=== PATIENT | male | born 1940 | race Caucasian/White ===

== ENCOUNTER → 2016-12-03 | Outpatient (CLI) | payer OTHER, BC ==
[~2016-12-03] MED LIST: CLS1 PO; CMD/25 PO; CMD5 PO; FENO160T PO; LVNIS100 SQ; MCRK/10 PO; MGNO400 PO; TNR50 PO; TRIA0.1O12 TOP; TRIA37.5 PO
--- NOTE | 2016-12-03 09:30 | DIAGNOSTIC IMAGING REPORT ---
ULTRASOUND RIGHT UPPER QUADRANT ABDOMEN CLINICAL HISTORY: Right upper quadrant abdominal pain. COMPARISON STUDY: No priors. TECHNIQUE: Real-time, grayscale, and color flow sonography of the right upper quadrant of the abdomen was performed. Images are reviewed in the transverse and longitudinal planes. FINDINGS: Liver: The liver is normal in size and echotexture. There is no intrahepatic biliary ductal dilatation. The main portal vein is patent. Gallbladder: The gallbladder is filled with shadowing calculi. There is no gallbladder wall thickening or pericholecystic fluid. A sonographic Branch's sign is reportedly absent. The common bile duct measures up to 0.5 cm in diameter. Pancreas: Visualized portions of the pancreatic head and body are normal in appearance. Right kidney: Survey images of the right kidney demonstrate normal size and echotexture. There is no hydronephrosis. A 2.2 cm exophytic cyst is incidentally noted. Ascites: None. IMPRESSION: 1. The gallbladder is filled with shadowing calculi. There is no sonographic evidence of acute cholecystitis. 2. There is no intra or extrahepatic biliary ductal dilatation. Electronically signed by: Eddie Laguerre M.D. 12/03/2016 9:29 AM Dictated Date/Time: 12/03/2016 9:27 AM
--- NOTE | 2016-12-03 10:34 | DIAGNOSTIC IMAGING REPORT ---
GI SERIES W/AIR ROUTINE CLINICAL HISTORY: R10.9 [phone] E X0D E COMPARISON STUDY: None FLUOROSCOPY TIME: 1.5 minutes. FINDINGS: Patient initiates swallowing function well. Esophagus normal in course and caliber. Gastroesophageal junction is normal. Size and configuration stomach are normal. Duodenal sweep is unremarkable. IMPRESSION: Normal study Electronically signed by: Denis Dillard M.D. 12/03/2016 10:32 AM Dictated Date/Time: 12/03/2016 10:23 AM
== END | disposition home or self-care (01) ==
LOC: C.ULTR 08:59
PROVIDERS: ATTEND Family Medicine
DX: R10.9 Unspecified abdominal pain (principal)

== ENCOUNTER → 2017-02-18 | Outpatient (CLI) | payer OTHER, BC ==
[~2017-02-18] MED LIST changes: +ACET-1311 PO; +AMLO-110 PO; +COLE1TAB PO; +ENOX100I SQ; +FLM4 PO; +MELO7.5T5 PO; +RXC5 PO; +TRMCR515 TOP; +WARF5TAB90 PO
[2017-02-18 14:53] LABS: ALT/SGPT 20 U/L (12-78); AST/SGOT 13 U/L (15-37); BLOOD UREA NITROGEN 24 mg/dl (7-18); CALCIUM 9.3 mg/dl (8.5-10.1); CARBON DIOXIDE 27 mmol/L (21-32); CHLORIDE 105 mmol/L (98-107); GLUCOSE 89 mg/dl (70-99); MAGNESIUM 2.4 mg/dl (1.8-2.4); POTASSIUM 3.9 mmol/L (3.5-5.1); SODIUM 140 mmol/L (136-145)
[2017-02-18 14:57] LABS: CHOLESTEROL 205 mg/dl (0-200); CHOLESTEROL/HDL RATIO 4.4; HDL CHOLESTEROL 47 mg/dl; LDL CHOLESTEROL CALCULATED 140 mg/dl; TRIGLYCERIDES 91 mg/dl (0-150); VERY LOW DENSITY LIPOPROT CALC 18 mg/dl
== END ==
LOC: C.LABMFLN 09:44
PROVIDERS: ATTEND Family Medicine
DX: I10 Essential (primary) hypertension (principal); E78.01 Familial hypercholesterolemia; E83.42 Hypomagnesemia

== ENCOUNTER → 2017-03-18 | Outpatient (CLI) | payer OTHER, BC ==
[2017-03-18 18:43] LABS: BLOOD UREA NITROGEN 17 mg/dl (7-18); BUN/CREATININE RATIO 17.4 (10-20); CALCIUM 8.9 mg/dl (8.5-10.1); CARBON DIOXIDE 22 mmol/L (21-32); CHLORIDE 106 mmol/L (98-107); GLUCOSE 74 mg/dl (70-99); POTASSIUM 3.7 mmol/L (3.5-5.1); SODIUM 139 mmol/L (136-145)
== END | disposition home or self-care (01) ==
LOC: C.LABMFLN 13:56
PROVIDERS: ATTEND Family Medicine
DX: I10 Essential (primary) hypertension (principal)

== ENCOUNTER → 2017-06-04 | Outpatient (CLI) | payer OTHER, BC ==
[~2017-06-04] MED LIST changes: -ENOX100I SQ; -FLM4 PO; -RXC5 PO; -WARF5TAB90 PO
--- NOTE | 2017-06-04 12:28 | DIAGNOSTIC IMAGING REPORT ---
LUMBAR SPINE MRI HISTORY: M48.06 Lumbar spinal [id number] TECHNIQUE: Multiplanar multisequence MRI of the lumbar spine was performed without the use of contrast. COMPARISON: None. FINDINGS: For the purpose of the report the L5-S1 disc space will be located on axial image 34 of 36. Alignment is intact. No fractures within the lumbar spine. There are multiple scattered T1 and T2 hyperintense lesions within the lumbar spine. These are consistent with hemangiomas. The largest at the L2 level measures 2.8 cm. The conus terminates at the L1-L2 disc space level. There are few subcentimeter T2 hyperintense lesions within the kidneys. These likely represent cysts. Paraspinal soft tissues are unremarkable. The L5-S1 disc space appears fused. Mild disc space narrowing at L2-L3 and moderate disc space narrowing at L3-4 L5 with endplate osteophytes. Moderate to severe facet osteoarthritis throughout the lumbar spine. Increased T2 signal within the L4-L5 disc space is likely due to the long-standing degenerative change. There are no endplate erosions identified. L1-L2: Tiny broad-based posterior disc bulge with bilateral facet hypertrophy resulting in minimal central canal and moderate left neural foraminal narrowing. L2-L3: Broad-based posterior disc bulge with ligamentum and facet hypertrophy resulting in mild to moderate central canal and mild bilateral neural foraminal narrowing. L3-L4: Small broad-based posterior disc bulge with bilateral severe facet hypertrophy and ligamentum hypertrophy. This results in severe central canal narrowing. There is mild bilateral neural foraminal narrowing. L4-L5: Small broad-based posterior disc bulge with a focal central annular tear. There are severe bilateral facet hypertrophy resulting in severe central canal narrowing. The central canal measures 6 mm in AP diameter. There is also moderate right and severe left neural foraminal narrowing. L5-S1: No significant central canal or neural foraminal narrowing. IMPRESSION: 1. Multilevel lumbar spondylosis as described above most pronounced at the L3-L4 and L4-5 levels where there is severe central canal narrowing. This is primarily due to the severe facet hypertrophy. 2. No fracture or subluxation. 3. The L5-S1 disc space appears fused. 4. Moderate to severe facet osteoarthritis throughout the lumbar spine. Electronically signed by: Garth Garsia M.D. 06/04/2017 12:27 PM Dictated Date/Time: 06/04/2017 12:16 PM
== END | disposition home or self-care (01) ==
LOC: C.MRI 10:56
PROVIDERS: ATTEND Family Medicine
DX: M48.06 Spinal stenosis, lumbar region (principal); M47.816 Spondylosis without myelopathy or radiculopathy, lumbar region

== ENCOUNTER → 2017-08-19 | Outpatient (CLI) | payer OTHER, BC ==
[~2017-08-19] MED LIST changes: -CLS1 PO; -CMD/25 PO; -CMD5 PO; +ENOX100I SQ; +FLM4 PO; -LVNIS100 SQ; -MCRK/10 PO; -MELO7.5T5 PO; -MGNO400 PO; +RXC5 PO; -TRIA0.1O12 TOP; -TRIA37.5 PO; +WARF5TAB90 PO
[2017-08-19 12:53] LABS: INR 1.3 (0.9-1.1); PROTHROMBIN TIME (PATIENT) 13.5 SECONDS (9.0-12.0)
[2017-08-19 13:25] LABS: BASO % 0.6 %; BASO ABS # 0.04 K/uL (0-0.2); COMPLETE YES; EOS % 3.1 %; HEMATOCRIT 29.6 % (42-52); IG% 1.4 %; LYMPH % 8.7 %; LYMPH ABS # 0.56 K/uL (1.2-3.4); MEAN CELL VOLUME 91.9 fL (80-100); MEAN CORPUSCULAR HEMOGLOBIN 31.1 pg (25-34); MEAN CORPUSCULAR HGB CONC 33.8 g/dl (32-36); MONO % 8.7 %; NEUT % 77.5 %; PLATELET COUNT 404 K/uL (130-400); RED BLOOD COUNT 3.22 M/uL (4.7-6.1); WHITE BLOOD COUNT 6.46 K/uL (4.8-10.8)
[2017-08-19 13:56] LABS: BLOOD UREA NITROGEN 10 mg/dl (7-18); BUN/CREATININE RATIO 11.1 (10-20); CALCIUM 9.4 mg/dl (8.5-10.1); CARBON DIOXIDE 24 mmol/L (21-32); CHLORIDE 104 mmol/L (98-107); CREATININE 0.93 mg/dl (0.60-1.40); GLUCOSE 94 mg/dl (70-99); POTASSIUM 3.9 mmol/L (3.5-5.1); SODIUM 138 mmol/L (136-145)
== END | disposition home or self-care (01) ==
LOC: C.LABMFLN 09:03
PROVIDERS: ATTEND Family Medicine
DX: Z00.00 Encounter for general adult medical examination without abnormal findings (principal); I10 Essential (primary) hypertension; D64.9 Anemia, unspecified; K62.5 Hemorrhage of anus and rectum; I82.409 Acute embolism and thrombosis of unspecified deep veins of unspecified lower extremity; M54.9 Dorsalgia, unspecified

== ENCOUNTER → 2017-09-23 | Outpatient (CLI) | payer OTHER, BC ==
[2017-09-23 18:25] LABS: HEMATOCRIT 40.3 % (42-52)
== END | disposition home or self-care (01) ==
LOC: C.LABMFLN 11:28
PROVIDERS: ATTEND Family Medicine
DX: D64.9 Anemia, unspecified (principal)

== ENCOUNTER → 2017-12-25 | Outpatient (CLI) | payer OTHER, BC | END | disposition home or self-care (01) | LOC: C.PATHSPEC 13:21 | PROVIDERS: ATTEND Family Medicine | DX: L57.0 Actinic keratosis (principal) ==

== ENCOUNTER → 2018-05-05 | Day surgery (SDC) | payer OTHER, BC ==
[2018-05-01 08:10] VITALS: Ht 185.4 cm; Wt 93.2 kg
[~2018-05-05] VITALS: Ht 185.4 cm; Wt 93.2 kg
[~2018-05-05] MED LIST changes: +500ML BSS 0.3ML EPI 1:1000PF IRRIG ONE; +ACETAMINOPHEN 325 MG TAB PO PRN; -AMLO-110 PO; +AMLO5TAB3 PO; +AMVISC PLUS 0.8ML SYRINGE INT OCU ONE; +ATROPINE SULFATE 0.1 MG/ML 5ML SYR IV PRN; +BRIMONIDINE TART 0.2% OP SOLN PER DROP CHARGE ONE; +BSS FLUSH ONE; +ENDOCOAT 0.85ML SYRINGE INT OCU ONE; -ENOX100I SQ; +EpHEDrine SULFATE INJ 50 MG/ML AMP IV PRN; +EpINEphrine INJ 1MG/ML AMP 1 MG/ML AMP ONE; -FLM4 PO; +LACTATED RINGER'S 1000ML 500 ML IV SCH; +LIDOCAINE 4% OP SOLN DROP CHARGE ONE; +LIDOCAINE 4% OP SOLN DROP CHARGE OPR SCH; +LIDOCAINE HCL 1% MPF 2 ML VIAL ONE; +MIDAZOLAM HCL 1 MG/ML 2ML VIAL ONE; +MOXIFLOXACIN OPH SOLN PER DROP CHARGE ONE; +POVIDONE-IODINE OP SOLN 30 ML BTL ONE; +PROPARACAINE 0.5% OP SOLN PER DROP CHARGE OPR SCH; -RXC5 PO; +TOBRAMYCIN/DEXAMETHASONE OPH OINT PER APPLN CHARGE ONE; -TRMCR515 TOP; +WARF-246 PO; -WARF5TAB90 PO; +WARF7.5T4 PO
--- NOTE | 2018-05-05 08:42 | History & Physical Bridge - SC ---
H&P Re-Evaluation Bridge Note: I have examined the patient, reviewed the History & Physical and in the interval since the performance of the History & Physical I have noted the following changes of clinical significance: No changes noted
[2018-05-05] MEDS: PHENYLEPHRINE HCL 2.5% OP SOLN PER DROP CHARGE OPR SCH ×2 (08:49→08:54)
[2018-05-05] MEDS: TROPICAMIDE 1% OP SOLN PER DROP CHARGE OPR SCH ×2 (08:50→08:55)
[2018-05-05] MEDS: CYCLOPENTOLATE HCL 1% OP SOLN PER DROP CHARGE OPR SCH ×2 (08:51→08:56)
[2018-05-05] MEDS: KETOROLAC 0.5% OP SOLN PER DROP CHARGE OPR SCH ×2 (08:52→08:57)
[2018-05-05] MEDS: MOXIFLOXACIN OPH SOLN PER DROP CHARGE OPR SCH ×2 (08:53→08:58)
--- NOTE | 2018-05-05 09:37 | [facility] Operative Report ---
Operative Report Operative Date May 05, 2018. Pre-Operative Diagnosis Right Eye Cataract Post-Operative Diagnosis same Procedure(s) Performed Right Cataract Phacoemulsification With Intraocular Lens Implant Surgeon Dr. Eladio Mosley Supervisor Mails Surgeon(s) 0 Estimated Blood Loss 0 Findings cataract right eye Specimens none Drains None Anesthesia Type MAC Complication(s) none Disposition no Recovery Room / PACU Indications decreased vision right eye Description of Procedure After informed consent was obtained in the holding area the patient was wheeled back to the operating room where cardiac monitoring leads and oxygen by nasal cannula was administered by Anesthesia. Gentle IV sedation was given, and the patient's right eye was prepped and draped in usual sterile fashion. A wire lid speculum was placed into the right eye and the operating microscope was swung into position. Using 0.12 forceps and a Supersharp blade a paracentesis port was made 2 o'clock hours away from the 3 o'clock position of the patient's right eye. 1% non-preserved Lidocaine was then injected into the anterior chamber for anesthesia. A 2.0 mm keratotome blade was then used to make a shelved clear corneal incision at the 3 o'clock position of the right eye. Amvisc was injected into the anterior chamber and a cystotome and Utrata forceps were used to perform a curvilinear capsulorrhexis. BSS on a hydrodissection cannula was used to hydrodissect the lens nucleus away from the capsular bag. The phacoemulsification handpiece was then used in a stop and chop fashion to remove the lens nucleus. The irrigation and aspiration handpiece was then used to remove the residual cortical material. Amvisc was injected into the capsular bag and anterior chamber and a Bausch [employer] Lomb MX60E 22.5 Diopter intraocular lens was injected into the capsular bag. Irrigation and aspiration handpiece was used to remove the residual viscoelastic material. The wounds were hydrated and noted to be watertight. The wire lid speculum was removed from the eye. Vigamox, Brimonidine, and TobraDex ointment were placed on the eye and it was shielded. It should be noted that EndoCoat was used extensively during the case to protect the cornea endothelium. DISPOSITION: The patient tolerated the procedure well and was wheeled to the post anesthesia care unit in stable condition. I attest to the content of the Intraoperative Record and any orders documented therein. Any exceptions are noted below. I attest to the content of the Intraoperative Record and any orders documented therein. Any exceptions are noted below.
--- NOTE | 2018-05-05 09:39 | Discharge Instructions-SurgCtr ---
Discharge Instructions Date of Service May 05, 2018. Visit Reason for Visit: Cataract Right Eye Discharge Discharge Diagnosis / Problem: cataract right eye Discharge Goals Goal(s): Improve function Activity Recommendations Activity Limitations: per Instructions/Follow-up section Lifting Limitations: no more than 5 pounds Anesthesia . Post Anesthesia Instructions: If you have had General Anesthesia or IV Sedation: * Do not drive today. * Resume driving when surgeon permits. * Do not make important decisions or sign legal documents today. * Call surgeon for: 1. Temperature elevations greater than 101 degrees F. 2. Uncontrollable pain. 3. Excessive bleeding. 4. Persistent nausea and vomiting. 5. Medication intolerance (nausea, vomiting or rash). * For nausea and vomiting use only clear liquids such as: tea, soda, bouillon until nausea subsides, then gradually increase diet as tolerated. * If you have any concerns or questions, call your surgeon's office. If physician is unavailable and it is an emergency, call 911 or go to the nearest emergency room. . Instructions / Follow-Up Instructions / Follow-Up ACTIVITY RECOMMENDATIONS: * Light activities * You may walk outside, read, watch television. * Mild irritation and blurred vision are common for the first few days, redness around the white part of the eye is common. MEDICATIONS: Resume previous medications unless instructed otherwise by your surgeon. Eye drops (today and tomorrow): Polytrim - one drop in operative eye every 2 hours while awake Prednisolone 1% - one drop in operative eye every 2 hours while awake Prolensa - one drop operative eye 1 times daily SPECIAL CARE INSTRUCTIONS: * If any problems or concerns, please call Dr. Mosley's office at . * Keep plastic shield taped over eye to sleep at night. * Keep plastic shield taped over eye except to administer eye drops. * Keep plastic shield on until office visit the following day. FOLLOW UP VISIT: Follow-up with Dr. Mosley in the [place] office as scheduled. If not already scheduled, please call the office at . Diet Recommendations Home Diet: resume previous diet Procedures Procedures Performed: Right Cataract Phacoemulsification With Intraocular Lens Implant Pending Studies Studies pending at discharge: no Medical Emergencies . Who to Call and When: Medical Emergencies: If at any time you feel your situation is an emergency, please call 911 immediately. . Non-Emergent Contact Non-Emergency issues call your: Soap Worker . . "Provider Documentation" section prepared by Wilton Mosley. .
[2018-05-05 09:40] VITALS: TEMP 36.3
--- NOTE | 2018-05-05 09:58 | Anesthesia Progress Nt - [facility] ---
Anesthesia Post Op Note Date & Time May 05, 2018 at 09:57 Vital Signs Pain Intensity: 0 Vital Signs Past 12 Hours Date Time Temp Pulse Resp B/P (MAP) Pulse Ox O2 Delivery O2 Flow Rate FiO2 05/05/18 09:40 36.3 62 16 157/90 (112) 94 Room Air 05/05/18 08:40 36.6 65 22 161/100 (120) 93 Room Air Notes Mental Status: alert / awake / arousable, participated in evaluation Pt Amnestic to Procedure: Yes Nausea / Vomiting: adequately controlled Pain: adequately controlled Airway Patency, RR, SpO2: stable & adequate BP & HR: stable & adequate Hydration State: stable & adequate Anesthetic Complications: no major complications apparent
[2018-05-05 10:05] VITALS: BP 163/84; PULSE 70; O2SAT 95
== END | disposition home or self-care (01) ==
LOC: X.SURG 07:54
PROVIDERS: ATTEND Ophthalmology
DX: H25.11 Age-related nuclear cataract, right eye (principal); I10 Essential (primary) hypertension; E78.00 Pure hypercholesterolemia, unspecified; M06.9 Rheumatoid arthritis, unspecified; Z79.01 Long term (current) use of anticoagulants

== ENCOUNTER 2019-10-14 04:56 | Inpatient (IN) ==
--- NOTE | 2019-09-16 11:48 | PAT Medication Instructions ---
Medication Instructions Date of Service September 16, 2019 Home Medications Medication Instructions Recorded atenolol 50 mg tablet 50 mg PO QAM #30 tab 04/24/19 fenofibrate 160 mg tablet 160 mg PO QAM #30 tab 04/24/19 amlodipine 5 mg tablet 5 mg PO QAM #90 tab 08/20/19 atenolol 50 mg tablet 50 mg PO QAM fenofibrate 160 mg tablet 160 mg PO QAM amlodipine 5 mg tablet 5 mg PO QAM colestipol 2 g PO QDD rivaroxaban [Xarelto] 20 mg PO QDL tamsulosin 0.4 mg PO QPM ASK your prescriber and surgeon rivaroxaban [Xarelto] 20 mg PO QDL (in order for spinal anesthesia, rivaroxaban/Xarelto needs to be stopped 3 days/72 hours before surgery. Please check if okay with doctor that prescribes this to you) STOP taking 48 hours before surgery fenofibrate 160 mg tablet 160 mg PO QAM colestipol 2 g PO QDD Take morning of surgery With a small sip of water, OTHERWISE NOTHING TO EAT OR DRINK AFTER MIDNIGHT: atenolol 50 mg tablet 50 mg PO QAM amlodipine 5 mg tablet 5 mg PO QAM Take evening before surgery tamsulosin 0.4 mg PO QPM Other Notes If you have any questions please call us at [phone] or [phone] or [phone] or [phone]
--- NOTE | 2019-09-17 15:17 | Anesthesiology Consultation ---
Date of Service September 17, 2019 Assessment & Plan (1) Encounter for pre-operative examination: - Awaiting review preop testing (coags, T&S). - Awaiting PCP preop clearance scheduled 09/28 ([facility]INCESS/Dr. Womack) - Recent new onset a. fib (rate controlled): PCP ordered 24 hour holter (09/09/19: dominant rhythm throughout a. fib) and ECHO (done 09/09/19). Started on Xarelto (patient was previously on coumadin for hx of DVTs which was discontinued when Xarelto was initiated recently). Continued on beta veronika. Patient scheduled for PCP preop clearance appointment 09/28/19 ([facility]/Dr. Womack). Case reviewed with Dr. Bermudez: he feels we do not need further cardiology evaluation or testing prior to surgery from his perspective pending final clearance from PCP. - Xarelto instructions: patient made aware that in order for spinal anesthesia, Xarelto needs to be held 3 days/72 hours prior to surgery. Patient voiced understanding/will check if okay with prescriber. Chart Review Chart Review: Patient seen in Pre Admission Testing Teaching & Discussion Pre-Anesthesia Teaching/Discussion Notes: Instructed NPO after midnight before surgery,except medications with 15 cc of water. Medication instructions provided according to the PAT guidelines. History Surgery Operation Date: 10/14/19 07:00 Proposed Procedures p Right Total Hip Arthroplasty - [place] Heredia MD Height/Weight Height: 6 ft 1 in Weight: 93.4 kg Allergies Allergy/AdvReac Type Severity Reaction Status Date / Time peanut Allergy Intermediate THROAT Verified 09/17/19 14:42 IRRIATATION (SEE COMMENTS) pollen extracts Allergy Mild HAY FEVER Verified 09/09/19 10:32 Zptfijr-Jcp-Cgy Reductase AdvReac Mild MUSCLE Verified 09/17/19 14:42 Inhibitor SORENESS, WEAKNESS Dust Allergy Mild HAY FEVER Uncoded 09/09/19 10:32 Medications Home Medications Medication Instructions Recorded Confirmed Last Taken atenolol 50 mg tablet 50 mg PO QAM #30 tab 04/24/19 09/09/19 Unknown fenofibrate 160 mg tablet 160 mg PO QAM #30 tab 04/24/19 09/09/19 Unknown amlodipine 5 mg tablet 5 mg PO QAM #90 tab 08/20/19 09/09/19 Unknown colestipol 2 g PO QDD 09/09/19 09/09/19 Unknown rivaroxaban [Xarelto] 20 mg PO QDL 09/09/19 09/09/19 Unknown tamsulosin 0.4 mg PO QPM 09/09/19 09/09/19 Unknown Past Medical History Medical History Atrial fibrillation, persistent recent diagnosis/started on Xarelto/scheduled for ECHO 09/09/19 [place] BPH (benign prostatic hyperplasia) Chronic back pain Degenerative disc disease Hearing deficit History of blood transfusion post-op Hx of deep venous thrombosis 2015, 2017 Hyperlipidemia Hypertension Osteoarthritis Renal insufficiency per records Spinal stenosis Exercise / Class Metabolic Activity II 4-5 Yardwork/Stairs/Walk up hill (one flight of stairs (no chest pain/no sob)) Past Family History Family History Other No pertinent family history Past Surgical History Surgical History History of anesthesia reaction UNABLE TO VOID AFTER BACK SURGERY 2017 - D/C TO HOME W/ CATHETER (RESOLVED) History of arthroscopic knee surgery RT X 2 History of back surgery X 2 1990S History of carpal tunnel release of both wrists History of cataract surgery History of colonoscopy History of inguinal hernia repair, bilateral WITH MESH History of knee replacement RT History of lumbar spinal fusion HARDWARE PRESENT (2017) History of tonsillectomy and adenoidectomy History of umbilical hernia repair Hx of decompression of ulnar nerve B/L Past Anesthesia History No Family Hx of Anesthesia Complications and Other History of anesthesia reaction UNABLE TO VOID AFTER BACK SURGERY 2017 - D/C TO HOME W/ CATHETER (RESOLVED) History of PONV No Hx of PONV and No Hx of Motion Sickness Social History Smoking Status: Never smoker Do You Dip or Chew Tobacco: No Hx Alcohol Use: Yes Alcohol type: beer alcohol intake frequency: holidays/special occasions only Hx Substance Use: No substance use type: does not use Review of Systems Patient denies chest pain, shortness of breath, dyspnea on exertion, cough, wheezing, palpitations. Physical Exam Vital Signs VITALS BP 156/90 P 79 TEMP 98.7 SP02 97%RA RESP 18 PHYSICAL mildly decreased cervical extension (chronic per patient 2/2 calcium deposits) Full TMJ range of motion. TMD 2.5 finger breaths Mallampati Score 3 Dentition: upper partial Lungs: clear throughout to auscultation Cardiac: regular rate, irregularly irregular rhythm, no murmurs noted Spine: normal Carotid arteries: negative bruit Extremities: no edema Testing Laboratory Results 09/08/19 WBC 5.64 H/H 16.8/48.5 PLATELETS 234 SODIUM 138 POTASSIUM 3.8 CHLORIDE 105 CO2 27 BUN 22 CREATININE 1.34 GLUCOSE 96 UA negative bacteria (no growth on urine culture) Electrocardiogram Date: 09/08/19 A. fib at 72bpm. iRBBB. LAFB. NS TWA. *Patient had subsequent ECHO done 09/09/19* Chest X-Ray Date: 04/08/19 No acute process within the chest. Mild cardiomegaly. Subtle interstitial thickening at the lung bases. This is likely chronic. Echocardiogram Date: 09/09/19 LVEF 53%. No RWMA. Moderate LAE. Mild DEAN. Mild AR/MR/TR. Underlying rhythm is a. fib. Other Testing 24 Hour Holter: 09/09/19: dominant rhythm a. fib throughout with an average ventricular response rate of 71bpm. Slowest response rate 44bpm. Fastest heart rate 109bpm. Occasional PVC's. No symptoms reported.
[2019-09-17 16:41] LABS: INR 1.4 (0.9-1.1); Partial Thromboplastin Ratio 1.4; Partial Thromboplastin Time 37.6 Seconds (21.0-31.0); Prothrombin Time 13.6 Seconds (9.0-12.0)
--- NOTE | 2019-09-25 17:48 | History and Physical Report ---
DATE OF ADMISSION: 10/14/2019 CHIEF COMPLAINT: Right hip pain. HISTORY OF PRESENT ILLNESS: This 79-year-old white male presents to the office with complaints of right hip pain that has been longstanding. He initially thought it was coming from his knee. It has been present for over a year. He had evaluation for his lumbar spine as well as corticosteroid injection in his hip without significant improvement. He has also had activity modification as well as oral pain medication without improvement. He notes some thigh atrophy that has been present for over a year. Pain is worse with weightbearing. It is affecting his ADLs. He notes some loss of motion. He elects to proceed with total hip arthroplasty in hopes of alleviating his discomfort. Preoperative imaging has been obtained. His accompanies him today. No numbness or tingling in his thigh. He is on chronic anticoagulation with Xarelto due to history of persistent atrial fibrillation and previous DVTs. He was recently diagnosed with recurrent onset of atrial fibrillation and is having further workup with his PCP. PAST MEDICAL HISTORY: Recurrent atrial fibrillation, hypertension, elevated cholesterol, sleep apnea, history of anemia, history of DVTs, rheumatoid arthritis, osteoarthritis, chronic low back pain, and BPH. PREVIOUS SURGERIES: Knee arthroscopy, back surgery, carpal tunnel release bilateral wrists, cataract surgery, colonoscopy, inguinal hernia repair bilaterally, right knee replacement, lumbar spinal fusion, tonsillectomy with adenoidectomy, umbilical hernia repair, and ulnar nerve decompression. ALLERGIES: KNOWN ALLERGY TO STATIN DRUGS INCLUDING ZOCOR, PRAVACHOL, AND LIPITOR. CURRENT MEDICATIONS: Amlodipine 5 mg p.o. daily, atenolol 50 mg p.o. daily, Colestid 1 gram orally daily, fenofibrate 160 mg p.o. daily, tamsulosin 0.4 mg p.o. at bedtime, Tylenol 1000 mg p.o. b.i.d., Xarelto 20 mg p.o. daily. FAMILY HISTORY: Noncontributory. SOCIAL HISTORY: The patient is retired. . No tobacco use, occasional ETOH use. REVIEW OF SYSTEMS: A total of 10 systems are reviewed and are significant only for above stated conditions. PHYSICAL EXAMINATION: GENERAL: Well-developed, well-nourished elderly white male in no acute distress. Sitting in a chair. Alert and oriented. SKIN: Warm and dry with good turgor. No rashes or lesions. No ecchymosis or erythema. HEENT: Normocephalic, atraumatic. Eyes PERRLA, EOMI. Nares patent bilaterally without turbinate enlargement. Oropharynx without erythema or exudate. No lesions noted. Uvula midline. Oral mucosa moist. Upper bridge is noted. Fillings are also noted. HEART: Irregularly irregular. No murmurs, gallops or rubs. Consistent with atrial fibrillation. LUNGS: Clear to auscultation bilaterally. No crackles, rhonchi or wheezing. Good air movement. ABDOMEN: Bowel sounds present x4, soft, nontender. No organomegaly. No masses. Obese. MUSCULOSKELETAL: Right hip shows no obvious asymmetry or deformity. He has pain with palpation over the anterior flexion crease as well as over his greater trochanter. The pain wraps in a C-shaped pattern around to his buttock. There is visible thigh atrophy on the right thigh. He has very limited internal rotation of the hip. Hip flexion is only done with external rotation. He cannot flex the hip in a straight line beyond 90 degrees. There is pain associated with internal and external rotation of the hip. Knee evaluation reveals good range of motion and no discomfort with palpation over the medial or lateral joint lines at this time. Ambulates with an antalgic gait. NEUROLOGIC: Cranial nerves II through XII are intact. Gross sensation is intact across both lower extremities by soft touch. Peripheral pulses are 2+. DTRs are 2+ at the knees. DATA: Radiographic imaging previously obtained shows significant degenerative change within the right hip. Periarticular osteophytes, subchondral sclerosis, and joint space narrowing are all present. IMPRESSION: Right hip end-stage degenerative joint disease. PLAN: Postoperative prescriptions for Percocet will be provided at discharge from the hospital. He will need to be bridged with Lovenox and stop his Xarelto preoperatively given his previous clots and current atrial fibrillation. He will need further workup from his PCP, Dr. Womack. The patient has already been ordered a Holter monitor with echo and reevaluation on 10/05/2019. The patient will likely require wound VAC postoperatively day 1. He already has a walker and cane. Preoperative lab work, EKG, and chest x-ray have been ordered.
[2019-10-14] MEDS ORDERED: LR 60ML/HR IV SCH (06:00)
[2019-10-14] MEDS ORDERED: LR 500ML BOLUS, THEN 15ML/HR IV SCH (06:00)
[2019-10-14] MEDS ORDERED: CEFAZOLIN 2000MG 2,000 MG/15 ML SYR IV SCH (06:00)
[2019-10-14] MEDS ORDERED: ROPIVACAINE 0.5% HCL/PF 150 MG, BUPIVACAINE 0.5% MPF 30 ML, EPINEPHrine 0.15 MG, Ketoro... INFIL SCH (06:00)
[2019-10-14] MEDS ORDERED: TRANEXAMIC ACID 1,000 MG x 1 **For Topical Use TOP SCH (06:00)
[2019-10-14 06:10] LABS: INR 1.1 (0.9-1.1); Partial Thromboplastin Time 27.6 Seconds (21.0-31.0); Prothrombin Time 11.1 Seconds (9.0-12.0)
[2019-10-14] MEDS ORDERED: BUPIVACAINE 0.5 % 5 MG/1 ML PF 10ML VIAL ONE (06:27)
--- NOTE | 2019-10-14 06:31 | History & Physical Bridge Note ---
Date of Service October 14, 2019 History & Physical Bridge Note I have examined the patient, reviewed the History & Physical and in the interval since the performance of the History & Physical I have noted the following changes of clinical significance: consent obtained. took last xarelto on saturday at 10 am per primary care doc insistence.no changes noted
[2019-10-14] MEDS ORDERED: ORTHO JOINT ANESTHETIC ONE (06:41)
[2019-10-14] MEDS ORDERED: ONDANSETRON INJ 2 MG/ML 2 ML VIAL IV PRN ×2 (06:46→10:38)
[2019-10-14] MEDS ORDERED: ATROPINE SULFATE 0.1 MG/ML 10ML SYR IV PRN (06:46)
[2019-10-14] MEDS ORDERED: ePHEDrine sulfate 50 MG/ML AMP IV PRN (06:46)
[2019-10-14] MEDS ORDERED: HYDROmorphone INJ 2 MG/ML SYR/VIAL IV PRN (06:46)
[2019-10-14] MEDS ORDERED: ONDANSETRON INJ 2 MG/ML 2 ML VIAL ONE (08:11)
[2019-10-14] MEDS ORDERED: ROCURONIUM BROMIDE 10 MG/ML 5 ML VIAL ONE (08:11)
[2019-10-14] MEDS ORDERED: NEOSTIGMINE METHYLSULFATE 5 MG/5 ML SYR ONE (08:11)
[2019-10-14] MEDS ORDERED: PROPOFOL IV EMULSION 10 MG/ML 20 ML VIAL IV ONE (08:11)
[2019-10-14] MEDS ORDERED: DEXAMETHASONE SOD INJ 4 MG/ML VIAL ONE (08:11)
[2019-10-14] MEDS ORDERED: LIDOCAINE HCL 2% 2 ML VIAL/AMP(20MG/ML) INFIL ONE (08:11)
[2019-10-14] MEDS ORDERED: fentaNYL citrate 100 MCG/2 ML VIAL ONE (08:11)
[2019-10-14] MEDS ORDERED: GLYCOPYRROLATE 0.2 MG/ML VIAL ONE (08:11)
[2019-10-14] MEDS: fentaNYL citrate 100 MCG/2 ML VIAL IV PRN ×4 (08:25→09:15)
--- NOTE | 2019-10-14 08:42 | Post Operative Brief Note ---
Immediate Post Op Note v1 Date of Surgery October 14, 2019 Pre & Post Diagnosis Operation Date: 10/14/19 07:00 Pre-Op Diagnosis: Degenerative Joint Disease Right Hip Post-Op Diagnosis: Degenerative Joint Disease Right Hip I identified the patient and participated in the time-out.: Yes Procedure Operation Date: 10/14/19 07:00 Actual Procedures p Right Total Hip Arthroplasty-uncemented(Right) - Cleveland Heredia MD Surgeon Cleveland Heredia MD Software Developer Consultant charlie/christopher Estimated Blood Loss 100 Findings Consistent with Post-Op Diagnosis
--- NOTE | 2019-10-14 08:54 | Operative Report ---
Post Operative Report Pre & Post Diagnosis Operation Date: 10/14/19 07:00 Pre-Op Diagnosis: Degenerative Joint Disease Right Hip Post-Op Diagnosis: Degenerative Joint Disease Right Hip I identified the patient and participated in the time-out.: Yes Procedure Operation Date: 10/14/19 07:00 Actual Procedures p Right Total Hip Arthroplasty-uncemented(Right) - Cleveland Heredia MD Surgeon BLAKE Heredia MD Chemical Checker charlie/[email or web address] Estimated Blood Loss 100 Findings Consistent with Post-Op Diagnosis Specimens see operative report Drains none Complications none Disposition Accompanied Patient To Recovery: Yes Disposition: Recovery Room Indications This 79-year-old white male presented to the office with complaints of intractable right hip pain. He had tried conservative care measures without improvement. He was ambulating with a cane. Patient elected to proceed with surgical intervention after being educated about potential risks and outcomes. Preoperative imaging was obtained. Description of Procedure Patient was taken to the operating room where he was given general anesthesia. He was prepped and draped in the usual sterile fashion. Please see Dr. Heredia's operative report for specifics of the procedure. I was present for the entire case from initial patient positioning through final wound cl osure. Assistance was provided in tissue retraction, hemostasis, trial implant placement, final implant placement, and final wound closure. Patient was taken to the recovery room in satisfactory condition. I attest to the content of the Intraoperative Record and any orders documented therein. Any exceptions are noted below.
--- NOTE | 2019-10-14 08:58 | Operative Report ---
Post Operative Report Pre & Post Diagnosis Operation Date: 10/14/19 07:00 Pre-Op Diagnosis: Degenerative Joint Disease Right Hip Post-Op Diagnosis: Degenerative Joint Disease Right Hip I identified the patient and participated in the time-out.: Yes Procedure Operation Date: 10/14/19 07:00 Actual Procedures p Right Total Hip Arthroplasty-uncemented(Right) - Cleveland Heredia MD Surgeon Cleveland Heredia MD Manager Of Distribution [email or web address] Estimated Blood Loss 100 Findings Consistent with Post-Op Diagnosis Specimens Right femoral head Complications none Disposition Accompanied Patient To Recovery: Yes Disposition: Recovery Room Description of Procedure Lateral decubitus position, standard prep and drape, time out Right total hip arthroplasty Please see Dr Heredia's procedure notes for specific details I was present throughout the case, assisted for wound closure and transferred the patient to PACU in stable condition I attest to the content of the Intraoperative Record and any orders documented therein. Any exceptions are noted below.
--- NOTE | 2019-10-14 09:19 | XRay Report ---
XR pelvis 1-2V routine CLINICAL HISTORY: Post Surgical COMPARISON: 09/17/2019 DISCUSSION: There are postsurgical changes of a total right hip arthroplasty. The acetabular femoral components appear well seated. There is no dislocation. There are overlying skin nikhil. There is ai r present within the soft tissues consistent with recent surgery. Metastatic IMPRESSION: Postsurgical changes of a total right hip arthroplasty. ACT 112: Negative or not required by law. Electronically signed by: Aashish Noble M.D. 10/14/2019 9:17 AM
[2019-10-14] MEDS ORDERED: VANCOMYCIN HCL 1,500 MG in SODIUM CHLORIDE 0.9% 500 ML IV SCH (09:30)
--- NOTE | 2019-10-14 09:40 | Anesthesiology Progress Note ---
Date of Service October 14, 2019 Anesthesia Post Procedure Vital Signs Vital Signs: Temp Pulse Pulse Resp BP Pulse Ox 10/14/19 09:35 76 12 130/81 95 10/14/19 09:25 71 10 L 130/90 95 10/14/19 09:15 71 13 127/93 95 10/14/19 09:05 66 19 131/80 93 10/14/19 08:55 36.3 C L 73 14 134/91 98 10/14/19 05:41 36.8 C 86 18 159/108 H 96 Pain Intensity Generalized: Pain Intensity: 4 Transfer of Care Handoff Completed per policy Notes Mental Status: alert / awake / arousable and participated in evaluation Patient Amnestic to Procedure: Yes Nausea / Vomiting: adequately controlled Pain: adequately controlled Airway Patency, RR, SpO2: stable & adequate BP & HR: stable & adequate Hydration State: stable & adequate Anesthetic Complications: no major complications apparent and Pt Satisfied with anesthetic care
--- NOTE | 2019-10-14 09:45 | Operative Report ---
DATE OF OPERATION: 10/14/2019 SURGEON: Cleveland Heredia MD KNITTED CLOTH EXAMINER: Flako Gaspar. SECOND KNITTED CLOTH EXAMINER: Geovani Jimenez PA-C PREOPERATIVE DIAGNOSIS: Severe osteoarthritis, right hip. POSTOPERATIVE DIAGNOSIS: Severe osteoarthritis, right hip. OPERATION PERFORMED: Noncemented right total hip replacement. SUMMARY OF IMPLANTS: Size 60 acetabular shell sector cup hole eliminator, 30 x 6.5 screw, acetabular poly liner is 36 x 60 neutral, femoral stem is standard size 5, femoral head is a ceramic 36+8.5. ESTIMATED BLOOD LOSS: 100 mL. PATHOLOGY: Pending on bone. PERIOPERATIVE SITUATION: Medically cleared male with intractable hip pain with x-rays revealing end-stage disease, has significant osteophytes and deformation of his head. At this point in time, he has a severe history of DVT. He is on Eliquis. He has been appropriately managed. He has been appropriately cleared, he understands the risk of PE and DVT. We will restart his anticoagulant tomorrow 24 hours post-surgery. DESCRIPTION OF PROCEDURE: The patient appropriately identified, site verified, consent verified. Antibiotics confirmed as being given. The right lower extremity was prepped and draped in usual routine fashion with the patient in left lateral decubitus position. It was about a centimeter short on that side. Posterior approach to the hip was then made. Care taken to coagulate all the vessels based on his history of being on a blood thinner. Once the fascia was identified, it was incised and split in the gluteus josette. Care taken to protect the sciatic nerve, the retractor was placed. Excellent exposure was obtained. The short external rotators were released. The capsule was then T'd and preserved. The hip was then dislocated. There was severe deformity of the femoral head with marked flattening osteophytosis and lack of cartilage. The femoral neck was resected. Acetabular exposure was excellent. The remaining labrum was excised. Osteophytes excised and then the cup reamed up to a 60 and a 60 acetabular shell sector cup impacted into appropriate anteversion and inclination. It was then additionally fixed with a 6.5 x 30 screw with excellent purchase. The trial liner was seated. The femur was then flexed and internally rotated into the wound. The proximal femur prepared with drink box mechanic, canal finder, lateralizing rasp, and serial broaching up to a size 5 and size 5 standard with an 8.5 head gave leg lengths within millimeters of equality and superb stability. The hip was then dislocated. Everything was irrigated and then the TXA was placed for 2-1/2 minutes and this was irrigated out. All trial implants were removed prior to this and then one final irrigation hole eliminator seated, permanent liner seated, permanent stem and head seated. The hip reduced. There was excellent stability and leg lengths excellent. The wound was then closed in layers using #2 Vicryl for the capsule and the short external rotator sleeve, #2 Vicryl for the deep fascia. Care taken to identify the nerve was in good position and no issues and then 2-0 Vicryl for the subcutaneous layer and stainless steel clips for skin. Appropriate dressing applied. The patient transferred to recovery room in satisfactory condition having tolerated the procedure well. Again EBL was 100 mL. DVT prophylaxis will resume 24 hours. He has baseline medication. I attest to the content of the Intraoperative Record and any orders documented therein. Any exception s are noted below.
--- NOTE | 2019-10-14 09:50 | Progress Note ---
DATE: 10/14/2019 SUBJECTIVE: Status post right total hip replacement. The patient seen in the recovery room. He denies any significant problems other than pain from his incision. He denies chest pain, shortness of breath, fever, chills, nausea, vomiting or headache. OBJECTIVE: Vital signs are stable. He is afebrile. Wound dressing clean, dry and intact. Femoral and sciatic nerve function is excellent. Leg lengths were within millimeters of equality. X-ray AP pelvis and hips reveals well fixed, well aligned hip replacement. ASSESSMENT: Doing well status post right hip replacement. Mobilize medially based on his history of deep vein thrombosis and minimize risk for deep vein thrombosis and pulmonary embolism. He will start his baseline anticoagulant 24 hours postop. We will have a wound Prevena placed on tomorrow to ensure compression on the wound.. Keep pressure on the wound based on his anticoagulation. Will need to be evaluated by PT, OT and psychotherapist social worker today for discharge tomorrow. KLAUS
[2019-10-14] MEDS ORDERED: ALUMINUM/MAGNESIUM SUSP 30 ML UDC PO PRN (10:38)
[2019-10-14] MEDS ORDERED: NALOXONE HCL 0.4 MG/1 ML VIAL/CARP IV PRN (10:38)
[2019-10-14] MEDS ORDERED: DiphenhydrAMINE HCL 50 MG/ML VIAL IV PRN (10:38)
[2019-10-14] MEDS ORDERED: HYDROmorphone INJ 0.5 MG/0.5 ML SYR IV PRN (10:38)
[2019-10-14] MEDS ORDERED: bisacodyL 10 MG SUPP PR PRN (10:38)
[2019-10-14] MEDS ORDERED: VANCOMYCIN CONSULT ACTIVE PRN (10:38)
[2019-10-14] MEDS ORDERED: METOCLOPRAMIDE HCL INJ 5 MG/ML 2 ML VIAL IV PRN (10:38)
[2019-10-14] MEDS ORDERED: OXYCODONE HCL IR 5 MG TAB (IMMEDIATE RELEASE) PO PRN (10:38)
[2019-10-14] MEDS ORDERED: MAGNESIUM HYDROXIDE SUSP 30 ML UDC PO PRN (10:38)
[2019-10-14] MEDS: KETOROLAC TROMETHAMINE 15 MG/ML VIAL IV SCH ×3 (12:05→23:48)
[2019-10-14] MEDS: ACETAMINOPHEN 500 MG TAB PO SCH ×2 (13:50→21:45)
[2019-10-14] MEDS: SODIUM CHLORIDE 0.9% 1000ML 1,000 ML IV SCH ×2 (13:53→23:48)
[2019-10-14] MEDS: CEFAZOLIN 2000MG 2,000 MG/15 ML SYR IV SCH ×2 (15:19→22:34)
[2019-10-14] MEDS ORDERED: LIDOCAINE 2% JELLY 5 ML TUBE EXT PRN (15:30)
[2019-10-14] MEDS ORDERED: COLESTIPOL HCL 1 GM TAB PO SCH (16:30)
[2019-10-14] MEDS: ASCORBIC ACID 500 MG TAB PO SCH (16:33)
[2019-10-14] MEDS: FERROUS GLUCONATE 324 MG TAB PO SCH (16:33)
[2019-10-14] MEDS: DOCUSATE SODIUM 100 MG CAP PO SCH (20:56)
[2019-10-14] MEDS ORDERED: SENNA 8.6 MG TAB PO SCH (21:00)
[2019-10-14] MEDS ORDERED: TAMSULOSIN HCL 0.4 MG CAP PO SCH (21:00)
[2019-10-15] MEDS: KETOROLAC TROMETHAMINE 15 MG/ML VIAL IV SCH (05:56)
[2019-10-15] MEDS: ACETAMINOPHEN 500 MG TAB PO SCH ×2 (05:56→13:39)
[2019-10-15 06:21] LABS: Eosinophils # (auto) 0.01 K/uL (0-0.5); Eosinophils % (auto) 0.1 %; Hematocrit (blood only) 37.6 % (42-52); Hemoglobin 13.2 g/dL (14.0-18.0); Immature Granulocytes # (auto) 0.02 K/uL (0.00-0.02); Immature Granulocytes % (auto) 0.3 %; Lymphocytes # (auto) 0.41 K/uL (1.2-3.4); Lymphocytes % (auto) 5.5 %; Mean Corpuscular Hemoglobin 32.2 pg (25-34); Mean Corpuscular Hgb Conc 35.1 g/dL (32-36); Mean Corpuscular Volume 91.7 fL (80-100); Mean Platelet Volume 9.3 fL (7.4-10.4); Monocytes # (auto) 0.82 K/uL (0.11-0.59); Monocytes % (auto) 11.1 %; Neutrophils # (auto) 6.16 K/uL (1.4-6.5); Platelet Count 171 K/uL (130-400); RDW Coefficient of Variation 13.9 % (11.5-14.5); RDW Standard Deviation 45.8 fL (36.4-46.3); White Blood Count 7.42 K/uL (4.8-10.8)
[2019-10-15 06:49] LABS: Calcium 8.9 mg/dl (8.5-10.1); Creatinine Clr Calc Pharmacy 66.3 ml/min; Est GFR (African American) 73.8; Est GFR (Non-African American) 63.7; Potassium 3.5 mmol/L (3.5-5.1)
[2019-10-15] MEDS: FERROUS GLUCONATE 324 MG TAB PO SCH (07:03)
[2019-10-15] MEDS: DOCUSATE SODIUM 100 MG CAP PO SCH (07:03)
[2019-10-15] MEDS: ASCORBIC ACID 500 MG TAB PO SCH (07:03)
[2019-10-15] MEDS ORDERED: dexAMETHasone 10 MG in SYRINGE 0 ML IV SCH (08:00)
--- NOTE | 2019-10-15 08:56 | Orthopedic Progress Note ---
Date of Service October 15, 2019 Assessment & Plan (1) Status post total hip replacement, right: Patient's dressings were changed today by me. Prevena wound VAC was placed. Patient will receive PT/OT this morning. His urinary retention remains, despite no use of postoperative narcotics and a dministration of Flomax last night. He has been straight cathed twice. We will see how he does after ambulating with PT and OT, and allow him 1 more trial of urination. If this is unsuccessful, he will require a Villalobos catheter before departure. Anticipate transfer to [facility] rehab later this morning. Wheelchair transport will need to be confirmed. Resume Xarelto 20 mg daily starting at 11 AM this morning. Follow-up in the office October 22 at 1:45 PM for wound VAC removal. Continue total hip precautions. Subjective Patient is seen in his room this morning. States he has no discomfort. He did not sleep well due to interruptions. He states he normally does not sleep well at night when at home. He was unable to urinate yesterday or this morning. Last evening he was straight cathed for 1250 cc. This morning around 6 he was straight cathed for additional 500 cc. No chest pain, shortness of breath, abdominal pain, nausea, or vomiting. He has been out of bed and has ambulated in the garcia. He has an urge to urinate, but just cannot void. No bowel movement yet. No other complaints. Review of Systems Review of Systems: unchanged from yesterday Physical Exam Physical Exam: Well-developed, well-nourished, elderly white male, laying in bed. Alert and oriented. He is able to freely move about his bed. He sits up with ease. Patient is able to stand at bedside with his walker. Postoperative dressing is intact. There is expected bleeding on the inner bandages. No active bleeding at this time. Expected postoperative ecchymosis. No significant edema. [place] are intact. Wound edges well approximated. Nonfluctuant around the wound. Supple motion of his right hip. Ambulates well in the room. Neurovascular status is intact for both lower extremities. Results & Data Vital Signs (Past 12 Hours) Vital Signs Temp Pulse Resp BP Pulse Ox 10/15/19 07:11 36.6 C 77 16 158/99 H 97 10/15/19 03:30 36.4 C L 84 18 126/79 94 10/14/19 23:27 36.7 C 83 17 134/75 92 Laboratory Results H&H obtained this morning are 13.2 and 37.6. PRP is unremarkable.
[2019-10-15] MEDS ORDERED: MULTIVITAMIN TAB PO SCH (09:00)
[2019-10-15] MEDS ORDERED: ATENOLOL 50 MG TABLET PO SCH (09:00)
[2019-10-15] MEDS ORDERED: AMLODIPINE BESYLATE 5 MG TAB PO SCH (09:00)
[2019-10-15] MEDS ORDERED: RIVAROXABAN 20 MG TAB PO SCH (11:30)
--- NOTE | 2019-10-15 17:04 | Discharge Summary ---
CHIEF COMPLAINT: Right hip pain. HISTORY OF PRESENT ILLNESS: A 79-year-old male underwent elective right total hip replacement. Hospital course has been uneventful with the exception of some urinary retention requiring some straight cathing. His postop x-rays look excellent. He is ambulatory. He is full weightbearing. He is restarted on his Xarelto due to his persistent atrial fibrillation and history of previous DVTs. PAST MEDICAL HISTORY: Remarkable for atrial fibrillation, hypertension, hypercholesterolemia, sleep apnea, history of anemia, history of DVTs, rheumatoid arthritis, osteoarthritis, chronic low back pain, and BPH. PREVIOUS SURGERIES: Include multiple knee scopes, back surgery, carpal tunnel releases, cataract surgery, colonoscopies, inguinal hernia repair, knee replacement, lumbar spinal fusion, tonsillectomy, umbilical hernia repair, ulnar nerve decompression. ALLERGIES: KNOWN TO STATIN DRUGS INCLUDING ZOCOR, PRAVACHOL AND LIPITOR. PREADMISSION MEDICATIONS: Include amlodipine, atenolol, Colestid, fenofibrate, tamsulosin, Tylenol, and Xarelto. He will resume all of those medications and p.r.n. pain medications, see prescription. FAMILY HISTORY: Noncontributory. SOCIAL HISTORY: Reveals he is retired, and lives with his . No tobacco or alcohol use. REVIEW OF SYSTEMS: Reveals no chest pain, shortness of breath, fever, chills, nausea, vomiting or headache. ASSESSMENT: Doing well status post right total hip replacement. Transfer to rehab facility for appropriate care immediate postop. Watch carefully for DVT, PE as he has a severe history. He is restarted on his Xarelto. Wound dressing clean, dry and intact. Prevena applied to maintain pressure to the wound. Follow up in 1 week for dressing change and in 2 weeks for staple removal.
== END 2019-10-15 15:44 | DRG 470 ==
LOC: ASU 04:56 → 3E 09:09